=== PATIENT | female | born 1945 | race Caucasian/White ===

== ENCOUNTER → 2017-11-19 | Outpatient (CLI) | payer OTHER ==
--- NOTE | 2017-11-19 16:49 | US ---
HISTORY: Right upper quadrant pain Study: Complete abdominal sonography Comparison: None Technique: Multiple grayscale as well as spectral and color Doppler images of the abdomen were obtain ed. Findings: The liver demonstrates normal echotexture and size without a space occupying lesion. There is no intr ahepatic or extrahepatic biliary ductal dilation. There is normal monotonous hepatopetal flow within the portal vein. The hepatic artery and veins are patent with normal spectral analysis as well. The g allbladder demonstrates good through transmission without echogenic shadowing stones or sludge and wi th no wall thickening or pericholecystic fluid. The common duct measures 4.1 mm. The pancreas, spleen , IVC, and aorta are largely obscured. There is possible bilateral renal atrophy measuring 6.5 cm on the right and 8.6 cm on the left, but the kidneys appear located midline and for which a congenital h orseshoe kidney is not excluded. IMPRESSION: Limited exam with suboptimal visualization of the spleen, pancreas, aorta, and IVC. 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 Reported By:
== END ==
LOC: RAD 11:08
PROVIDERS: ATTEND Nurse Practitioner
DX: R10.11 Right upper quadrant pain (principal)
CPT/HCPCS: 76700

== ENCOUNTER 2018-01-01 09:00 | Day surgery (SDC) | payer OTHER ==
[2018-01-01] MEDS ORDERED: D5 LR 1000 ML 1,000 ML IV ONE (09:25)
[2018-01-01] MEDS ORDERED: DIPRIVAN VIAL 20 ML ONE (11:14)
[2018-01-01 11:48] VITALS: BP 144/69
== END 2018-01-01 11:50 | disposition home or self-care (01) ==
LOC: SURG1 09:00
PROVIDERS: ATTEND Internal Medicine Gastroenterology
PROC: 0DB88ZX Excision of Small Intestine, Via Natural or Artificial Opening Endoscopic, Diagnostic (ICD-10-PCS; principal; 2018-01-01 12:45)
PROC: 0DJ08ZZ Inspection of Upper Intestinal Tract, Via Natural or Artificial Opening Endoscopic (ICD-10-PCS; principal; 2018-01-01 12:45)
PROC: 0DB68ZX Excision of Stomach, Via Natural or Artificial Opening Endoscopic, Diagnostic (ICD-10-PCS; principal; 2018-01-01 12:45)
DX: R10.13 Epigastric pain (principal); R10.11 Right upper quadrant pain; R11.0 Nausea; K20.8 Other esophagitis; K29.60 Other gastritis without bleeding
CPT/HCPCS: 99100; A4217; J3490; J7120